=== PATIENT | female | born 1960 | race African-American/Black ===

== ENCOUNTER → 2016-10-12 | Outpatient (CLI) | payer BC ==
[~2016-10-12] MED LIST: ACHD5005 PO; AMLO10TA82 PO; AMLO1CAP; FERR-57 PO; HYDR-3714; METO25TA2 GT; MTP25TSR; MTX2.5T PO; MUPI1OIN5 NS; NAPR-243 PO; NF-VAL40T; OXYC-12 PO
--- NOTE | 2016-10-12 11:32 | Diagnostic Imaging Report ---
PROCEDURE: MRI left joint lower extremity without contrast. TECHNIQUE: Multiplanar, multisequence non contrast-enhanced MRI of the left lower extremity was accomplished. INDICATION: Altered gait, posterior tibial tendon tear. FINDINGS: The previous MRI left ankle exam performed on 08/20/2008 failed to show any sign of an acute bony abnormality. There was degenerative disease involving the lateral aspect of the distal tibia, however. In the interval since the previous exam, the degenerative changes involving the distal tibia have progressed. There is greater abnormal signal in the subarticular region of the lateral aspect of the distal tibia, and small subchondral cysts are now visualized. Furthermore, new areas of abnormal signal have developed in the distal fibula near its articulation with the distal tibia. There is also a small area of altered signal now present in the lateral aspect of the talar dome. 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 There is also somewhat greater narrowing of the space between the tibia and the talar dome than noted previously. Also, the amount of fluid within the ankle joint has increased since the prior exam. The previous exam did note fluid within the posterior tibialis tendon sheath. The tendon itself appeared to be intact. On this study, however, there is irregularity and narrowing of a short segment of the posterior tibialis tendon as it courses by the distal tibia (axial image 12/10, coronal image ). I do suspect that the posterior tibialis tendon is partially torn. There is still fluid in the tendon sheath. The other major ligaments and tendons appear to be intact. Some fluid has developed in the tendon sheath of the flexor hallucis longus tendon, however. IMPRESSION: 1. The appearance of the ankle joint has worsened since the previous study as the degenerative changes involving the lateral aspect of the ankle joint have progressed. There are now areas of abnormal signal not only along the lateral aspect of the distal tibia but also in the distal fibula and the talar dome. There is also greater narrowing of the tibiotalar articulation, and the amount of fluid in the ankle joint has increased as well. 2. There appears to be a partial tear of the posterior tibialis tendon as it courses by the distal tibia. There is also persistent fluid within the tendon sheath. Fluid is also seen in the flexor hallucis longus tendon sheath and this does suggest tenosynovitis as well. 3. The other major ligaments and tendons are intact. Dictated by: Dictated on workstation # [id number]
== END ==
LOC: RAD 09:36
PROVIDERS: ATTEND Orthopaedic Surgery
DX: S83.8X2A Sprain of other specified parts of left knee, initial encounter (principal); X58.XXXA Exposure to other specified factors, initial encounter; Y99.8 Other external cause status
CPT/HCPCS: 73721

== ENCOUNTER 2017-03-27 08:49 | Emergency (ER) | payer BC ==
[~2017-03-27] VITALS: Ht 157.5 cm; Wt 83.9 kg
[2017-03-27] MEDS ORDERED: HYDROcodone/APAP 5 MG/325 MG (LORTAB) TAB PO STA (08:59)
--- NOTE | 2017-03-27 09:02 | ED Fall/Injury ---
General Chief Complaint: Trauma-Non Activation Stated Complaint: BACK OF ARM, CHEST/ABD PAIN FROM FALL Nursing Triage Note: AMBULATED TO ROOM 06 WITH COMPLAINTS OF FALLING YESTERDAY. COMPLAINS OF BILAT CHEST PAIN UNDER BREAST AND BILAT POST SHOULDER PAIN. Source: patient Exam Limitations: no limitations History of Present Illness Time seen by provider: 08:55 Initial Comments Here with report of chest wall pain and upper back pain after falling yesterday. She apparently tripped over a brick in the garden. She had fallen last year and tried to stop herself with her arm and broke her wrist so this time she did not brace her fall with her hands. She landed directly on her breast and this apparently has caused the pain. She reports pain with deep breathing. She did try Tylenol and that did not help with the pain. She denies respiratory distress though just the pain with deep breathing. Occurred: yesterday Severity: moderate Injuries/Pain Location: chest, back Context: tripped Loss of Consciousness: no loss of consciousness Modifying Factors: Improves With Rest Associated Symptoms (Fall): No Abdominal Pain, No Nausea/Vomiting, No Neck Pain , No Shortness of Air Allergies and Home Medications Allergies Coded Allergies: morphine (Verified Allergy, Mild, RASH, 03/07/13) tramadol (Verified Allergy, Mild, NAUSEA, 06/19/08) Home Medications Ferrous Sulfate 325 Mg Tablet, 325 MG PO DAILY, (Reported) Methotrexate 2.5 Mg Tab, 8 EACH PO ONCE A WEEK, (Reported) Metoprolol Tartrate 25 Mg Tablet, 100 MG GT, (Reported) Mupirocin Calcium 1 Gm Oint..gm., 0 NS BID, (Reported) APPLY SMALL AMOUNT IN EACH NOSTRIL INSTRUCTED Constitutional: see HPI, No chills, No fever Respiratory: see HPI, No hemoptysis, No short of breath Cardiovascular: see HPI, No edema, No palpitations Gastrointestinal: No abdominal pain, No nausea, No vomiting Musculoskeletal: see HPI, muscle pain, No neck pain Skin: no symptoms reported Past Xpnisie-Psibtm-Jixhsb Hx Patient Social History Alcohol Use: Denies Use Recreational Drug Use: No Smoking Status: Never a Smoker Recent Foreign Travel: No Contact w/Someone Who Travel: No Recent Infectious Disease Expo: No Recent Hopitalizations: No Immunizations Up To Date Tetanus Booster (TDap): Less than 5yrs Surgeries HX Surgeries: Yes (COLONOSCOPY) Surgeries: Tubal Ligation Respiratory Hx Respiratory Disorders: No Cardiovascular Hx Cardiac Disorders: Yes Cardiac Disorders: Hypertension Neurological Hx Neurological Disorders: No Reproductive System Sexually Transmitted Disease: No HIV/AIDS: No A AND P TECHNICIAN History: Menopausal Genitourinary Hx Genitourinary Disorders: No Gastrointestinal Hx Gastrointestinal Disorders: No Musculoskeletal Hx Musculoskeletal Disorders: Yes (BONE SPURS, ARTHRITIS, TORN ROTATOR CUFF) Musculoskeletal Disorders: Arthritis, Rheumatoid Arthritis Endocrine Hx Endocrine Disorders: No HEENT HX ENT Disorders: No Cancer Hx Cancer: No Psychosocial Hx Psychiatric Problems: No Integumentary HX Skin/Integumentary Disorder: No Blood Transfusions Hx Blood Disorders: No Adverse Reaction to a Blood Tr: No Reviewed Nursing Assessment Reviewed/Agree w Nursing PMH: Yes Physical Exam Vital Signs Vital Sign - Last 12Hours 03/27/17 08:54 Temp 98.0 Pulse 62 Resp 18 B/P (MAP) 177/103 Pulse Ox 99 Capillary Refill : Less Than 3 Seconds General Appearance: WD/WN, no apparent distress Neck: full range of motion, supple Cardiovascular: regular rate, rhythm, no murmur Respiratory: lungs clear, normal breath sounds, no respiratory distress Gastrointestinal: non tender, soft Skin: normal color, warm/dry Chi Coma Score Best Eye Response: (4) Open Spontaneously Best Verbal Response: (5) Oriented Best Motor Response: (6) Obeys Commands Progress/Results/Core Measures Results/Orders My Orders Orders - THONG LANCE MD Hydrocodone/Apap 5/325 Tablet (Lortab 5 (03/27/17 08:59) Chest Pa/Lat (2 View) (03/27/17 08:59) Ribs, Left 2-3 Views (03/27/17 08:59) Vital Signs/I&O Vital Sign - Last 12Hours 03/27/17 08:54 Temp 98.0 Pulse 62 Resp 18 B/P (MAP) 177/103 Pulse Ox 99 Blood Pressure Mean: 127 Progress Note : Progress Note Seen and evaluated. X-ray of the chest and left ribs ordered. Hydrocodone 2.5 mg by mouth. Monitor patient. No acute findings. Discharged home with return precautions. Patient verbalize understanding instructions and agreement with plan. Diagnostic Imaging Diagonstic Imaging: Xray Plain Films/CT/US/NM/MRI: chest Comments VIA [facility] NAME: LUIS STORY [facility] REC#: [id number] PT STATUS: REG ER : 03/25/1952 PHYSICIAN: THONG LANCE MD ADMIT DATE: 03/27/17/ER Draft Date of Exam:03/27/17 CHEST 1 VIEW, AP/PA ONLY INDICATION: Shortness of breath. Comparison made with prior examination from 08/29/16. FINDINGS: There is cardiomegaly. There is some venous congestion. There is some discoid atelectasis and/or pneumonitis in the left lung base. There is no pneumothorax. The mediastinum is unremarkable. IMPRESSION: Left basilar discoid atelectasis and/or pneumonitis and a left pleural effusion. Cardiomegaly and some central pulmonary venous congestion. Dictated on workstation # [id number] Dict: 03/27/1714 Trans: 03/27/17825 MARION [id number] Interpreted by: NOAH HEBERT Electronically signed by: Dianstic Imaging: Xray Plain Films/CT/US/NM/MRI: other (ribs) Comments VIA [place] NAME: MAIDA ULLOA [facility] REC#: [id number] PT STATUS: REG ER : 1960 PHYSICIAN: THONG LANCE MD ADMIT DATE: 03/27/17/ER Draft Date of Exam:03/27/17 RIBS, LEFT 2-3 VIEWS INDICATION: Fall. Three views were obtained. FINDINGS: The left lung is clear. There is no pleural effusion or pneumothorax. There are no displaced rib fractures. IMPRESSION: No displaced rib fractures Dictated on workstation # [id number] Dict: 03/27/17920 Trans: 03/27/17927 MARLEY [id number] Interpreted by: NOAH HEBERT Electronically signed by: Departure Impression Impression: Primary Impression: Chest wall contusion Qualified Codes: S20.212A - Contusion of left front wall of thorax, initial encounter Disposition: 01 HOME, SELF-CARE Condition: Improved Departure-Patient Inst. Decision time for Depature: 09:34 Referrals: SRIDHAR SOLIMAN MD (PCP/Family) Primary Care Physician Patient Instructions: CHEST CONTUSION Add. Discharge Instructions: All discharge instructions reviewed with patient and/or family. Voiced understanding. Take medications as directed. You may take Tylenol 1000 mg every 8 hours if you are not taking the prescribed pain medicine but do not take both as they have Tylenol in both. Follow up with your Dr. in a few days for recheck. Return for worse pain, fever, vomiting, weakness, breathing problems or other concerns as needed. Scripts Hydrocodone/Acetaminophen (Hydrocodon -Acetaminophen 5-325) 1 Each Tablet 0.5-1 EACH PO Q6H Y for PAIN-MODERATE, #8 TAB 0 Refills Prov: THONG LANCE MD 03/27/17 THONG LANCE MD Mar 27, 2017 09:02
--- NOTE | 2017-03-27 09:26 | Diagnostic Imaging Report ---
INDICATION: Fall. PA and lateral views of the chest were obtained. FINDINGS: The heart size, mediastinal configuration, and pulmonary vascularity are within normal limits. There is no pleural effusion, pneumothorax, or pneumonia. The osseous structures are unremarkable. IMPRESSION: No acute cardiopulmonary abnormality. Dictated by: Dictated on workstation # [id number]
--- NOTE | 2017-03-27 09:29 | Diagnostic Imaging Report ---
INDICATION: Fall. Three views were obtained. FINDINGS: The left lung is clear. There is no pleural effusion or pneumothorax. There are no displaced rib fractures. IMPRESSION: No displaced rib fractures Dictated by: Dictated on workstation # [id number]
[2017-03-27] MEDS ORDERED: HYDR-3812 PO (09:36)
[2017-03-27 09:44] VITALS: BP 133/91
--- OUTSIDE RECORDS SUMMARY | 2017-03-29 11:05 | XMS REPORT | Continuity of Care Document ---
Author Author [facility] Address Unknown Phone Unavailable Allergies Active Description Code Type Severity Reaction Onset Reported/Identified Relationship to Patient Clinical Status Yes tramadol [id number] Drug Allergy Mild NAUSEA 06/19/2008 Yes morphine [id number] Drug Allergy Mild RASH 03/07/2013 Medications Problems Date Dx Coded Attending Type Code Diagnosis Diagnosed By 02/07/2015 FREDI ROWELL MD, FACC FACP CCDS Ot 278.01 02/07/2015 LELIA GARCÍA FACC, FREDI FACP CCDS Ot 401.9 02/07/2015 LELIA GARCÍA FACC, FREDI FACP CCDS Ot V58.69 02/07/2015 LELIA GARCÍA FACC, FREDI FACP CCDS Ot V72.84 02/07/2015 FREDI ROWELL MD, FACC FACP CCDS Ot V85.42 03/01/2015 ADRIENNE KRISHNAN MD Ot 709.8 SKIN DISORDERS NEC 03/01/2015 ADRIENNE KRISHNAN MD Ot 916.4 INSECT BITE HIP LEG 03/01/2015 ADRIENNE KRISHNAN MD Ot E000.8 OTHER EXTERNAL CAUSE STATUS 03/01/2015 ADRIENNE KRISHNAN MD Ot E849.0 ACCIDENT IN HOME 03/01/2015 ADRIENNE KRISHNAN MD Ot E906.4 NONVENOM ARTHROPOD BITE 05/19/2016 LELIA GARCÍA FACC, FREDI FACP CCDS Ot 278.01 MORBID OBESITY 05/19/2016 LELIA GARCÍA FACC, FREDI FACP CCDS Ot 401.9 HYPERTENSION NOS 05/19/2016 LELIA GARCÍA FACC, FREDI FACP CCDS Ot V58.69 OTH MED,LT,CURRENT USE 05/19/2016 LELIA GARCÍA FACC, FREDI FACP CCDS Ot V72.84 EXAM PRE-OPERATIVE NOS 05/19/2016 LELIA GARCÍA FACC, FREDI FACP CCDS Ot V85.42 BODY MASS INDEX 45.0-49.9, ADULT 05/19/2016 BARBARA NAIDU APRN Ot M25.532 PAIN IN LEFT WRIST 05/19/2016 BARBARA NAIDU WASTE AND BATTING WASTE CHOPPER Ot M79.642 PAIN IN LEFT HAND 05/21/2016 BARBARA NAIDU N WASTE AND BATTING WASTE CHOPPER Ot M25.532 PAIN IN LEFT WRIST 05/21/2016 BARBARA NAIDU WASTE AND BATTING WASTE CHOPPER Ot M79.642 PAIN IN LEFT HAND 10/13/2016 BRYAN DO, MASHA F Ot S83.8X2A SPRAIN OF OTHER SPECIFIED PARTS OF LEFT 10/13/2016 BRYAN DO, MASHA F Ot X58.XXXA EXPOSURE TO OTHER SPECIFIED FACTORS, INI 10/13/2016 BRYAN DO, MASHA F Ot Y99.8 OTHER EXTERNAL CAUSE STATUS 10/13/2016 BRYAN DO, MASHA F Ot S83.8X2A SPRAIN OF OTHER SPECIFIED PARTS OF LEFT 10/13/2016 BRYAN DO, MASHA F Ot X58.XXXA EXPOSURE TO OTHER SPECIFIED FACTORS, INI 10/13/2016 BRYAN DO, MASHA F Ot Y99.8 OTHER EXTERNAL CAUSE STATUS 10/27/2016 BRYAN DO, MASHA F Ot S83.8X2A SPRAIN OF OTHER SPECIFIED PARTS OF LEFT 10/27/2016 BRYAN DO, MASHA F Ot X58.XXXA EXPOSURE TO OTHER SPECIFIED FACTORS, INI 10/27/2016 BRYAN DO, MASHA F Ot Y99.8 OTHER EXTERNAL CAUSE STATUS Procedures Results Encounters
== END 2017-03-27 09:44 | disposition home or self-care (01) ==
LOC: EDUNIT# 08:49 → ER 08:50
DX: Y92.007 Garden or yard of unspecified non-institutional (private) residence as the place of occurrence of the external cause; W01.0XXA Fall on same level from slipping, tripping and stumbling without subsequent striking against object, initial encounter; S20.212A Contusion of left front wall of thorax, initial encounter; M06.9 Rheumatoid arthritis, unspecified; M19.90 Unspecified osteoarthritis, unspecified site; I10 Essential (primary) hypertension
CPT/HCPCS: 71020; 71100; 99283

== ENCOUNTER → 2017-05-02 | Outpatient (CLI) | payer BC ==
[~2017-05-02] MED LIST changes: +HYDR-3812 PO
--- NOTE | 2017-05-03 12:27 | Diagnostic Imaging Report ---
INDICATION: Digital mammogram bilateral screening. This study was compared to the prior exam of 05/01/12. At this time there are no current complaints. The current study was also evaluated with a Computer Aided Detection (CAD) system. The 3D tomographic views also fail to show any evidence of malignancy. FINDINGS: There are scattered fibroglandular densities in both breasts which could obscure a lesion. Overall, there does not appear to have been any significant change when compared to the prior exam. No primary or secondary sign of malignancy is noted. IMPRESSION: 1. There is no evidence of malignancy. 2. The patient should have her annual mammogram on schedule in April of 2018. ACR BI-RADS Category 1: Negative. Result letter will be mailed to the patient. Note: At least 10% of breast cancer is not imaged by mammography. Dictated by: Dictated on workstation # [id number]
== END ==
LOC: RAD 14:10
PROVIDERS: ATTEND Nurse Practitioner Family
DX: Z12.31 Encounter for screening mammogram for malignant neoplasm of breast (principal)
CPT/HCPCS: 77067

== ENCOUNTER → 2018-08-02 | Outpatient (CLI) | payer BC ==
[~2018-08-02] MED LIST changes: -HYDR-3812 PO
--- NOTE | 2018-08-03 09:07 | Diagnostic Imaging Report ---
INDICATION: Routine screening. COMPARISON: 05/02/2017 and 05/01/2012. TECHNIQUE: 2D and 3D bilateral screening mammography was performed with CAD. FINDINGS: Scattered fibroglandular densities are identified bilaterally. The parenchymal pattern is stable. No mass or malignant appearing microcalcifications are seen. The axillae are unremarkable. IMPRESSION: No mammographic features suspicious for malignancy are identified. ACR BI-RADS Category 1: Negative. Result letter will be mailed to the patient. Note: At least 10% of breast cancer is not imaged by mammography. Dictated by: Dictated on workstation # [id number]
== END ==
LOC: RAD 15:32
PROVIDERS: ATTEND Nurse Practitioner Family
DX: Z12.31 Encounter for screening mammogram for malignant neoplasm of breast (principal)
CPT/HCPCS: 77067

== ENCOUNTER → 2020-09-03 | Outpatient (CLI) | payer BC ==
--- NOTE | 2020-09-03 13:54 | Diagnostic Imaging Report ---
PROCEDURE: US right lower extremity venous. TECHNIQUE: Multiple real-time grayscale images were obtained over the right lower extremity in various projections. Additional spectral analysis and color Doppler duplex images were also obtained. INDICATION: Right leg pain and swelling The veins of the right leg have good color filling and compressibility. There is phasic flow and a normal response to augmentation. IMPRESSION: Negative venous Doppler right leg Dictated by: Dictated on workstation # [id number]
== END ==
LOC: RAD 12:39
DX: I82.409 Acute embolism and thrombosis of unspecified deep veins of unspecified lower extremity (principal)

== ENCOUNTER → 2022-08-10 | Outpatient (CLI) | payer BC ==
--- NOTE | 2022-08-10 14:56 | Diagnostic Imaging Report ---
PROCEDURE: US Hepatic (Liver). TECHNIQUE: Multiple real-time grayscale images were obtained over the right upper quadrant in various projections. INDICATION: Elevated Ferritin level. FINDINGS: The liver shows increased echogenic appearance measuring 17 cm. There is a 10 mm cyst present in the liver. The gallbladder is absent. Common bile duct is obscured by the echogenic liver. Pancreas is also obscured. The aorta measures 2.2 cm. Vena cava and portal vein are normal with Doppler sampling. Right kidney measures 9.6 x 4.6 x 5 cm showing no hydronephrosis or calculi. No ascites. Negative Pierre sign. IMPRESSION: 1. Very echogenic liver with mild hepatomegaly. This could be secondary to hepatic steatosis though hemochromatosis can also show increased echogenicity. MRI imaging would be more sensitive for iron deposition in the liver. Dictated by: Dictated on workstation # [id number]
== END ==
LOC: RAD 09:45
PROVIDERS: ATTEND Family Medicine
DX: R16.0 Hepatomegaly, not elsewhere classified (principal); R79.89 Other specified abnormal findings of blood chemistry
CPT/HCPCS: 76705